=== PATIENT | male | born 1945 | race Two or more races ===

== ENCOUNTER 2016-11-15 19:05 | Observation (INO) | payer OTHER, MEDICARE ==
[2016-11-15] MEDS ORDERED: NORMAL SALINE 1000 ML 1,000 ML IV ONE (19:30)
[2016-11-15] MEDS ORDERED: ONDANSETRON HCL INJ/PF 4 MG/2 ML SDV IV ONE (19:47)
--- NOTE | 2016-11-15 20:00 | ER Document Report ---
ED Medical Screen (RME) - General TRAVEL OUTSIDE OF THE [place] IN LAST 30 DAYS: No <JUDITH MANDUJANO - Last Filed: 11/15/16 19:50> <AYALA VILLATORO - Last Filed: 11/15/16 20:25> - General Chief Complaint: Vomiting Stated Complaint: VOMITING,SENT FROM URGENT CARE Time Seen by Provider: 11/15/16 19:35 Notes: Patient is a 71 year old male presenting to the emergency department for abdominal pain, belching, dry heaving, and lack of appetite. Patient has also had rhinorrhea. Patient states he was seen at Urgent Care and was instructed to come to the ED because of hypotension and concern for dehydration. Patient also states he has been short of breath from the heat. Patient has a history of prostate cancer, stents x3, diabetes mellitus, and CAD. (JUDITH MANDUJANO) - Related Data Allergies/Adverse Reactions: No Known Allergies Allergy (Unverified 11/15/16 19:35) Past Medical History - Social History Chew tobacco use (# tins/day): No Frequency of alcohol use: None Drug Abuse: None - Past Medical History Cardiac Medical History: Reports: Hx Hypercholesterolemia, Hx Hypertension Endocrine Medical History: Reports: Hx Diabetes Mellitus Type 2 Renal/ Medical History: Denies: Hx Peritoneal Dialysis Musculoskeltal Medical History: Reports Hx Arthritis Past Surgical History: Reports: Hx Abdominal Surgery - hernia, Hx Cardiac Surgery - stents, Hx Tonsillectomy - Immunizations Hx Diphtheria, Pertussis, Tetanus Vaccination: No History of Influenza Vaccine for 11/2016 - 04/2017 Season: Yes Influenza Administration Date for 11/2016 - 04/2017 Season: 11/09/15 <JUDITH MANDUJANO - Last Filed: 11/15/16 19:50> Physical Exam <JUDITH MANDUJANO - Last Filed: 11/15/16 19:50> - Vital signs Interpretation: Tachycardic <AYALA VILLATORO - Last Filed: 11/15/16 20:25> - Vital signs Vitals: Temp Pulse Resp BP Pulse Ox 98.1 F 122 H 22 H 104/55 L 99 11/15/16 19:14 11/15/16 19:14 11/15/16 19:14 11/15/16 19:14 11/15/16 19:14 - Notes Notes: GENERAL: Alert, interacts well. No acute distress. LUNGS: No respiratory distress. ABDOMEN: Soft, non-tender. Non-distended. Bowel sounds present in all 4 quadrants. (JUDITH MANDUJANO) Course - Laboratory Result Diagrams: 11/15/16 20:05 11/15/16 20:05 <AYALA VILLATORO - Last Filed: 11/15/16 20:25> - Vital Signs Vital signs: Temp Pulse Resp BP Pulse Ox 98.1 F 122 H 22 H 104/55 L 99 11/15/16 19:14 11/15/16 19:14 11/15/16 19:14 11/15/16 19:14 11/15/16 19:14 - Laboratory Laboratory results interpreted by me: 11/15/16 20:05 POC Glucose 132 H Scribe Documentation - Scribe Written by Scribe:: Nura Charlton 11/15/16 20:08 acting as scribe for :: Phillip <JUDITH MANDUJANO - Last Filed: 11/15/16 19:50>
[2016-11-15 20:20] LABS: ABSOLUTE BASOPHILS # (AUTO) 0.2 10^3/uL (0.0-0.2); ABSOLUTE EOSINOPHILS # (AUTO) 0.1 10^3/uL (0.0-0.6); ABSOLUTE LYMPHOCYTES (AUTO) 2.6 10^3/uL (0.5-4.7); ABSOLUTE NEUT (AUTO) 9.4 10^3/uL (1.7-8.2); BASOPHILS % (AUTO) 1.2 % (0-2); EOSINOPHILS % (AUTO) 0.6 % (0-6); HEMATOCRIT 44.8 % (37.9-51.0); HEMOGLOBIN 15.3 g/dL (13.5-17.0); HGB HCT DIFFERENCE 1.1; LYMPHOCYTES % (AUTO) 19.5 % (13-45); MEAN CORPUSCULAR HGB CONC 34.2 g/dL (32.0-36.0); MEAN CORPUSCULAR VOLUME 82 fl (80-97); MONOCYTES % (AUTO) 7.8 % (3-13); RED BLOOD COUNT 5.48 10^6/uL (4.35-5.55); RED CELL DISTRIBUTION WIDTH 15.6 % (11.5-14.0); SEGMENTED NEUTROPHILS % (AUTO) 70.9 % (42-78); VENOUS BLOOD HCO3 23.9 mmol/L (20-32); VENOUS BLOOD PCO2 40.5 mmHg (35-63); VENOUS BLOOD PH 7.39 (7.30-7.42); WHITE BLOOD COUNT 13.2 10^3/uL (4.0-10.5)
[2016-11-15 20:27] LABS: PROTHROMBIN TIME 13.4 SEC (11.4-15.4)
[2016-11-15 20:34] LABS: APPEARANCE,URINE SLIGHTLY-CLOUDY; BILIRUBIN,URINE NEGATIVE (NEGATIVE); GLUCOSE, URINE NEGATIVE (NEGATIVE); KETONES,URINE NEGATIVE (NEGATIVE); LEUKOCYTE ESTERASE,URINE LARGE (NEGATIVE); NITRITE,URINE NEGATIVE (NEGATIVE); PROTEIN,URINE NEGATIVE (NEGATIVE)
--- NOTE | 2016-11-15 20:51 | ER Document Report ---
ED GI/ - General Chief Complaint: Vomiting Stated Complaint: VOMITING,SENT FROM URGENT CARE Time Seen by Provider: 11/15/16 19:35 Notes: Patient is a 71-year-old male who comes emergency department for chief complaint of vomiting, generalized abdominal pain, belching, and some sinus congestion. He states he has no appetite and is barely drinking. He states he has been sick for 5 days. He denies fever. He denies dysuria, flank pain, chest pain, difficulty breathing, cough. He just vomited before I entered the room. Past medical history of type 2 diabetes, CAD with stents, prostate cancer with previous radiation but no current treatments, and inguinal hernia repair. He lives at home with his daughter. TRAVEL OUTSIDE OF THE [place] IN LAST 30 DAYS: No - Related Data Allergies/Adverse Reactions: No Known Allergies Allergy (Unverified 11/15/16 19:35) Home Medications: Current Home Medications Aspirin [Aspirin 325 mg Tablet] 325 mg PO ASDIR 11/16/16 [History] Atenolol [Tenormin] 25 mg PO DAILY 11/16/16 [History] Lisinopril/Hydrochlorothiazide [Lisinopril-Hctz 20-12.5 mg Tab] 2 tab PO DAILY 11/16/16 [History] Meloxicam 15 mg PO DAILY 11/16/16 [History] Metformin HCl 500 mg PO DAILY 11/16/16 [History] Trazodone HCl 50 mg PO QHS PRN 11/16/16 [History] Venlafaxine HCl 75 mg PO DAILY 11/16/16 [History] Past Medical History - General Information source: Patient - Social History Smoking Status: Never Smoker Chew tobacco use (# tins/day): No Frequency of alcohol use: None Drug Abuse: None Lives with: Family Family History: Reviewed & Not Pertinent Patient has suicidal ideation: No Patient has homicidal ideation: No - Past Medical History Cardiac Medical History: Reports: Hx Hypercholesterolemia, Hx Hypertension Endocrine Medical History: Reports: Hx Diabetes Mellitus Type 2 Renal/ Medical History: Denies: Hx Peritoneal Dialysis Musculoskeltal Medical History: Reports Hx Arthritis Past Surgical History: Reports: Hx Abdominal Surgery - hernia, Hx Cardiac Surgery - stents, Hx Tonsillectomy - Immunizations Hx Diphtheria, Pertussis, Tetanus Vaccination: No Review of Systems - Review of Systems Constitutional: See HPI EENT: No symptoms reported Cardiovascular: No symptoms reported Respiratory: No symptoms reported Gastrointestinal: See HPI Genitourinary: No symptoms reported Male Genitourinary: No symptoms reported Musculoskeletal: No symptoms reported Skin: No symptoms reported Hematologic/Lymphatic: No symptoms reported Neurological/Psychological: No symptoms reported Physical Exam - Vital signs Vitals: Temp Pulse Resp BP Pulse Ox 98.1 F 122 H 22 H 104/55 L 99 11/15/16 19:14 11/15/16 19:14 11/15/16 19:14 11/15/16 19:14 11/15/16 19:14 Interpretation: Normal - General General appearance: Appears well, Alert In distress: None - HEENT Head: Normocephalic, Atraumatic Eyes: Normal Pupils: PERRL - Respiratory Respiratory status: No respiratory distress Chest status: Nontender Breath sounds: Normal Chest palpation: Normal - Cardiovascular Rhythm: Regular. No: Tachycardia Heart sounds: Normal auscultation, S1 appreciated, S2 appreciated Murmur: No - Abdominal Inspection: Normal Distension: No distension Bowel sounds: Normal Tenderness: Tender - There is generalized tenderness, mainly in the upper abdomen, there is no guarding or rigidity Organomegaly: No organomegaly - Back Back: Normal, Nontender. No: Tender, CVA tenderness - Extremities General upper extremity: Normal inspection, Nontender, Normal color, Normal ROM , Normal temperature General lower extremity: Normal inspection, Nontender, Normal color, Normal ROM , Normal temperature, Normal weight bearing. No: Luisa's sign - Neurological Neuro grossly intact: Yes Cognition: Normal Orientation: AAOx4 Bernard Coma Scale Eye Opening: Spontaneous Flor Coma Scale Verbal: Oriented Bernard Coma Scale Motor: Obeys Commands Flor Coma Scale Total: 15 Speech: Normal Motor strength normal: LUE, RUE, LLE, RLE Sensory: Normal - Psychological Associated symptoms: Normal affect, Normal mood - Skin Skin Temperature: Warm Skin Moisture: Dry Skin Color: Normal Course - Re-evaluation Re-evalutation: Patient is nontoxic in appearance, has generalized abdominal pain, however he is holding an emesis bag and appears to have just vomited before I entered the room. No CVA tenderness. No tachycardia, no hypotension, these have resolved since being given IV fluids from triage orders. Concern because of patient stating he has had vomiting for 5 days. CBC shows mild leukocytosis with no shift. He is not febrile. Lactic acid is elevated but he is also dry and I feel this is nonspecific with his normal vital signs. Chemistry shows elevated creatinine 1.8 with no comparison studies. Urinalysis indicates infection with large leukocyte esterase and white blood cells. On reevaluation patient has completed contrast and completed his scan but he states he vomited again. Patient will be given oral medication including Phenergan for nausea. CAT scan showing no acute abnormality, no evidence of obstruction or concerning pathology. Family has arrived at bedside and they report to me that he has vomited again and then had a couple of episodes of dry heaving. Patient still looks great, he does not appear toxic in any way, however I am concerned about the duration of his vomiting, his age, his urinary tract infection, and his seemingly intractable vomiting. Family is not comfortable with patient going home, patient states he is agreeable either way. Discussed with Dr. Sen. Discussed with Dr. Rodriguez, internal medicine, patient will be admitted to telemetry observation. - Vital Signs Vital signs: Temp Pulse Resp BP Pulse Ox 98.2 F 96 18 108/72 100 11/16/16 03:24 11/16/16 03:53 11/16/16 03:24 11/16/16 03:24 11/16/16 03:24 - Laboratory Result Diagrams: 11/15/16 20:05 11/15/16 20:35 Laboratory results interpreted by me: 11/15/16 11/15/16 11/15/16 20:05 20:05 20:05 WBC 13.2 H RDW 15.6 H Absolute Neutrophils 9.4 H Potassium BUN Creatinine Est GFR ( Amer) Est GFR (Non-Af Amer) Glucose POC Glucose Lactic Acid 3.3 H Calcium Urine Urobilinogen 2.0 H Ur Leukocyte Esterase LARGE H 11/15/16 11/15/16 20:05 20:35 WBC RDW Absolute Neutrophils Potassium 5.1 H BUN 52 H Creatinine 1.87 H Est GFR ( Amer) 43 L Est GFR (Non-Af Amer) 36 L Glucose 129 H POC Glucose 132 H Lactic Acid Calcium 10.5 H Urine Urobilinogen Ur Leukocyte Esterase Discharge - Discharge Clinical Impression: Vomiting Qualifiers: Vomiting type: unspecified Vomiting Intractability: intractable Nausea presence : with nausea Qualified Code(s): R11.2 - Nausea with vomiting, unspecified Abdominal pain Qualifiers: Abdominal location: generalized Qualified Code(s): R10.84 - Generalized abdominal pain Urinary tract infection Qualifiers: Urinary tract infection type: site unspecified Qualified Code(s): N39.0 - Urinary tract infection, site not specified Condition: Stable Disposition: ADMITTED OBSERVATION Admitting Provider: Hospitalist Unit Admitted: Telemetry
[2016-11-15 20:59] LABS: ALANINE AMINOTRANSFERASE 39 U/L (21-72); ALKALINE PHOSPHATASE 117 U/L (38-126); ANION GAP 14 (5-19); ASPARTATE AMINO TRANSFERASE 25 U/L (17-59); BILIRUBIN,DIRECT 0.4 mg/dL (0.0-0.4); BILIRUBIN,TOTAL 0.8 mg/dL (0.2-1.3); BLOOD UREA NITROGEN 52 mg/dL (7-20); CALCIUM 10.5 mg/dL (8.4-10.2); CARBON DIOXIDE 23 mmol/L (22-30); CHLORIDE 102 mmol/L (98-107); CREATININE RESULT 1.87 mg/dL (0.52-1.25); GLUCOSE 129 mg/dL (75-110); POTASSIUM 5.1 mmol/L (3.6-5.0); SODIUM 138.5 mmol/L (137-145); TOTAL PROTEIN 6.7 g/dL (6.3-8.2)
--- NOTE | 2016-11-15 23:01 | RADIOLOGY REPORT (SQ) ---
EXAM DESCRIPTION: CT ABD/PELVIS ORAL ONLY COMPLETED DATE/TIME: 11/15/2016 10:41 pm REASON FOR STUDY: n/v, abd pain, hypotensive, tachycardic COMPARISON: None. TECHNIQUE: CT scan of the abdomen and pelvis performed with oral contrast and no intravenous contras t. Images reviewed with lung, soft tissue, and bone windows. Reconstructed coronal and sagittal MPR i mages reviewed. All images stored on PACS. All CT scanners at this facility use dose modulation, iterative reconstruction, and/or weight based d osing when appropriate to reduce radiation dose to as low as reasonably achievable (ALARA). [facility]: Dose Right [facility]: CareDose [facility]: Dose Right [facility]: Teradose 4D [facility]: [employer] RADIATION DOSE: Up-to-date CT equipment and radiation dose reduction techniques were employed. CTDIv ol: 17.9 mGy. DLP: 1064 mGy-cm.mGy. LIMITATIONS: None. FINDINGS: LOWER CHEST: Clear lung bases. Normal heart size. Trace pericardial thickening. Small h iatal hernia. NON-CONTRASTED LIVER, SPLEEN, ADRENALS: Evaluation limited by lack of IV contrast. No identified sign ificant masses. PANCREAS: No masses. No peripancreatic inflammatory changes. GALLBLADDER: No identified stones by CT criteria. No inflammatory changes to suggest cholecystitis. RIGHT KIDNEY AND URETER: No solid masses. No significant calcification. No hydronephrosis or hydroure ter. LEFT KIDNEY AND URETER: No solid masses. No significant calcification. No hydronephrosis or hydrouret er. AORTA AND RETROPERITONEUM: No aneurysm. No retroperitoneal masses or adenopathy. BOWEL AND PERITONEAL CAVITY: No obvious masses or inflammatory changes. No free fluid. APPENDIX: Normal. PELVIS, BLADDER, AND ABDOMINAL WALL: No abnormal pelvic masses. No abdominal wall hernias. Bladder un remarkable. BONES: No significant findings. OTHER: No other significant finding. IMPRESSION: NO SIGNIFICANT OR ACUTE ABDOMINAL PROCESS. TECHNICAL DOCUMENTATION: JOB ID: [id number] Quality ID # [id number]: Final reports with documentation of one or more dose reduction techniques (e.g., Au tomated exposure control, adjustment of the mA and/or kV according to patient size, use of iterative reconstruction technique) 2010 [employer]- All Rights Reserved
[2016-11-15] MEDS ORDERED: FAMOTIDINE 20 MG TABLET PO ONE (23:22)
[2016-11-15] MEDS ORDERED: CEFTRIAXONE 1 GM/D5W RTU 1 GM/50 ML RTUPB IV ONE (23:22)
[2016-11-15] MEDS ORDERED: MAG HYDROX/AL HYDROX/SIMETH SUSP 30 ML UDCUP PO ONE (23:22)
[2016-11-15] MEDS ORDERED: PROMETHAZINE HCL 25 MG TABLET PO ONE (23:22)
[2016-11-16] MEDS ORDERED: INSULIN LISPRO 100 UNIT/ML 3 ML VIAL SUBCUT PRN (02:59)
[2016-11-16] MEDS ORDERED: DEXTROSE 50%-WATER 25 GM/50 ML DISP.SYRIN IV PRN ×2 (02:59)
[2016-11-16] MEDS ORDERED: DEXTROSE 40% GEL 15 GM TUBE PO PRN ×2 (02:59)
[2016-11-16] MEDS ORDERED: GLUCAGON,HUMAN RECOMB 1 MG INJ IM PRN (02:59)
[2016-11-16] MEDS ORDERED: PHARMACY COMMUNICATION ORDER MC SCH (03:00)
[2016-11-16] MEDS ORDERED: ACETAMINOPHEN 325 MG TABLET PO PRN ×2 (03:00→08:30)
[2016-11-16] MEDS ORDERED: PROMETHAZINE HCL 25 MG TABLET PO PRN (03:00)
[2016-11-16] MEDS ORDERED: NORMAL SALINE 1000 ML 1,000 ML IV PRN (03:01)
--- NOTE | 2016-11-16 03:27 | PDOC H&P ---
History of Present Illness Admission Date/PCP: 11/16/16 01:39 [facility] Patient complains of: Nausea and vomiting, abdominal pain History of Present Illness: MARIA ELENA CORDOVA JR is a 71 year old male with underlying type 2 diabetes mellitus, obstructive sleep apnea, never having picked up his CPAP machine, chronic mild depression, without suicidal or homicidal ideation, arthritis, and status post radiation treatment of prostate cancer which has left him with approximately 3 urinary tract infections per year, who presents to the emergency room for evaluation of above complaints. Patient has been discussed with emergency room PA who evaluated the patient. Describes a 5 day history of intermittent somewhat cramping abdominal pain, frequent belching, mild sinus congestion, but primarily multiple episodes of nonbloody non-coffee ground emesis. Little appetite and little p.o. fluid intake. There is been no fever, dysuria, flank or chest pain, cough or difficulty breathing. No history of peptic ulcer disease, pancreatitis, Crohn's disease, ulcerative colitis, or inflammatory bowel disease. No prior such episodes. No unusual oral intake. No friends or family with similar complaints. No diarrhea. Somewhat softer than usual but otherwise normal bowel movement approximately 24 hours ago. Has been given a gram of Rocephin and a liter of IV fluid. Has been tried more than once on clear liquids, but shortly after drinking these, he becomes nauseated and vomits again. States the emesis episode usually start with belching. Last had something to drink in the form of clear liquids approximately 30 minutes prior to my seeing him. He is comfortable at the present time. Denies any chronic underlying renal disease. Dictation via voice recognition software. Laboratory results are listed in [employer] and are reviewed. X-ray summary results are listed below, with full report(s) reviewed. EKG reviewed. No old EKG available for comparison. Social history/personal habits: . One daughter. Retired. No use of alcohol tobacco or illicit drugs. No known drug allergies. Home medications initially autopopulated into [employer] may not accurately reflect patient's true medications, dosages, and/or frequencies. 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 Unfortunately, patient not certain of all medications/dosages/frequencies. REVIEW OF SYSTEMS: Constitutional: No fever or chills. Eyes: Wears glasses. ENT: No swallowing problems or complaints. Partial hearing loss. Pulmonary: No current complaints. Cardiovascular: No current complaints, including chest pain. Gastrointestinal: See history and present illness. Skin: No current complaints, including rashes. Hematologic: Denies easy bruising. Neurologic: Mild diabetic peripheral neuropathy, in the form of decreased sensation in his feet. Musculoskeletal: Joint pain from arthritis. Psychiatric: Mild depression. Endocrine: No current complaints, including polyuria. Genitourinary: No current complaints, including dysuria. PHYSICAL EXAMINATION: 6 feet 1 inches tall. 118 kg. BMI 34.3 kg/m. Blood pressure 104/46. Pulse 107 and regular. 94% saturation on room air. Respirations are 20 and unlabored. Temperature 98.1. Somewhat obese otherwise well-nourished well-developed bearded male who appears perhaps a bit younger than his stated age. Pleasant awake alert and cooperative. Rather talkative gentleman. Mildly anxious, without agitation. Skin is warm and dry. No grossly obvious evidence of rash in areas of skin examined. No subcutaneous nodules palpated. ENT: Hearing grossly normal to normal conversation. Tongue midline on protrusion pink and moist. Eyes: No scleral icterus. Pupils equal and reactive to light at 4 mm. [place] conjunctivae. Neck is supple and nontender to gentle active range of motion and palpation. Midline trachea. No palpable thyroid nodule mass enlargement or tenderness. Lymphatic: No palpable cervical or clavicular nodes. Neck and lymphatic exams limited by patient body habitus. Psychiatric: Reasonable insight into acute and chronic medical issues. Oriented to time location and why here. Lungs: Auscultation reveals clear and equal breath sounds bilaterally. No use of accessory respiratory muscles. Cardiovascular: Heart regular rate and rhythm, without gallop murmur or rub. No carotid or abdominal aortic bruits. No ankle or pedal edema. Faintly palpable dorsalis pedis pulses. Abdomen:soft somewhat obese nontender with positive bowel sounds. Unable to adequately evaluate abdomen for masses or organomegaly due to body habitus. Extremities: Feet are warm and dry. No calf tenderness to compression. No grossly obvious visual evidence of calf swelling. Gentle manipulation of lower extremities fails to reveal any obvious evidence of injury or instability to knees hips or ankles. Approximately 1 x 1.5 cm ulcer on the tip of his right great toe small amount of surrounding thickened skin. No inflammation crepitus fluctuance or expressible discharge or tenderness. Much smaller ulcer, but similar findings, minus the thickened skin, on the tip of his left second toe. Neurologic: Moves upper extremities grossly normally. Patellar reflexes absent. Absent Babinski. Light touch slightly decreased at feet, a chronic finding, without recent change, per patient. Dorsiflexion and plantarflexion of feet 5 / 5 and symmetric. Past Medical History Cardiac Medical History: Reports: Coronary Artery Disease - Stent 3; the last 2002, Hyperlipidema, Hypertension Denies: Atrial Fibrillation, Congestive Heart Failure, DVT, Myocardial Infarction, Pulmonary Embolism Pulmonary Medical History: Reports: Sleep Apnea - Never picked up his CPAP machine. Denies: Asthma, Chronic Obstructive Pulmonary Disease (COPD) EENT Medical History: Reports: Eyes - Wears glasses, Ears - Partial hearing loss Neurological Medical History: Reports: Other - Diabetic peripheral neuropathy in his feet Denies: Hemorrhagic CVA, Ischemic CVA, Seizures Endocrine Medical History: Reports: Diabetes Mellitus Type 2 Denies: Diabetes Mellitus Type 1, Hyperthyroidism, Hypothyroidism Renal/ Medical History: Reports: Other - Frequent urinary tract infections, approximately 3 per year. Malignancy Medical History: Reports: Other - Prostate cancer, status post radiation treatment of same GI Medical History: Denies: Cirrhosis, Gastroesophageal Reflux Disease, Hepatitis, Peptic Ulcer Disease Musculoskeltal Medical History: Reports: Arthritis Skin Medical History: Reports: None Psychiatric Medical History: Reports: Depression Denies: Alcohol Dependency, General Anxiety Disorder, Substance Abuse, Tobacco Dependency Infectious Medical History: Denies: Hepatitis B, Hepatitis C Past Surgical History Past Surgical History: Reports: Coronary Stent - 3, last 2002, Herniorrhaphy, Tonsillectomy Social History Information Source: Patient, Emergency Med Personnel Smoking Status: Unknown if Ever Smoked Frequency of Alcohol Use: None Drugs: None - Advance Directive Resuscitation Status: Full Code Surrogate healthcare decision maker:: Debra Cordova Family History Parental Family History Reviewed: Yes - Mother of renal failure; father after myocardial infarction Children Family History Reviewed: Yes - Uncertain health status of daughter Sibling(s) Family History Reviewed.: Yes - Medication/Allergy Home Medications: RX: Aspirin [Aspirin 325 mg Tablet] 325 mg PO DAILY 11/16/16 RX: Atenolol [Tenormin] 25 mg PO DAILY 11/16/16 RX: Metformin HCl [Glucophage 500 mg Tablet] 500 mg PO QAM 11/16/16 RX: Trazodone HCl [Desyrel 50 mg Tablet] 50 mg PO HSP PRN 11/16/16 RX: Venlafaxine HCl [Effexor 75 mg Tablet] 75 mg PO DAILY 11/16/16 Cefdinir [Omnicef 300 mg Capsule] 1 cap PO BID #28 capsule 11/18/16 Allergies/Adverse Reactions: No Known Allergies Allergy (Unverified 11/15/16 19:35) Physical Exam Vital Signs: Temp Pulse Resp BP Pulse Ox 98.1 F 122 H 19 110/68 97 11/15/16 19:14 11/15/16 19:14 11/16/16 02:31 11/16/16 02:31 11/16/16 02:31 Results Impressions: Abdomen/Pelvis CT 11/15/16 00:00 IMPRESSION: NO SIGNIFICANT OR ACUTE ABDOMINAL PROCESS. Assessment & Plan - Diagnosis (1) Hyperkalemia Is this a current diagnosis for this admission?: Yes Plan: Very mild. Follow-up chemistry. (2) HORTENCIA (obstructive sleep apnea) Is this a current diagnosis for this admission?: Yes Plan: CPAP nightly (3) Stented coronary artery Is this a current diagnosis for this admission?: Yes Plan: Resume home medications as appropriate once these have been determined and reviewed. (4) Ulcer of left second toe Qualifiers: Non-pressure ulcer stage: unspecified non-pressure ulcer stage Qualified Code(s): L97.529 - Non-pressure chronic ulcer of other part of left foot with unspecified severity Is this a current diagnosis for this admission?: Yes Plan: Surgery consult. (5) Chronic ulcer of right great toe Qualifiers: Non-pressure ulcer stage: unspecified non-pressure ulcer stage Qualified Code(s): L97.519 - Non-pressure chronic ulcer of other part of right foot with unspecified severity Is this a current diagnosis for this admission?: Yes Plan: Surgery consult. (6) Renal insufficiency Is this a current diagnosis for this admission?: Yes Plan: No prior labs available for comparison. Patient denies any chronic urinary tract issues, other than approximately 3 urinary tract infections per year. Also status post radiation treatment of prostate cancer. Adjust home medications as needed. IV fluids. Follow-up chemistry. (7) Diabetes mellitus type 2 in obese Is this a current diagnosis for this admission?: Yes Plan: Diabetic cardiac prerenal diet. Accu-Cheks with appropriate sliding scale coverage. Resume home medications as appropriate once these have been determined and reviewed. (8) Depression Qualifiers: Depression Type: unspecified Qualified Code(s): F32.9 - Major depressive disorder, single episode, unspecified Is this a current diagnosis for this admission?: Yes Plan: Resume home medications as appropriate once these have been determined and reviewed. (9) HLD (hyperlipidemia) Qualifiers: Hyperlipidemia type: unspecified Qualified Code(s): E78.5 - Hyperlipidemia , unspecified Is this a current diagnosis for this admission?: Yes Plan: Resume home medications as appropriate once these have been determined and reviewed. (10) Vomiting Qualifiers: Vomiting type: unspecified Vomiting Intractability: intractable Nausea presence: with nausea Qualified Code(s): R11.2 - Nausea with vomiting, unspecified Is this a current diagnosis for this admission?: Yes Plan: Clear liquid prerenal diet. As needed Phenergan. (11) Abdominal pain Qualifiers: Abdominal location: generalized Qualified Code(s): R10.84 - Generalized abdominal pain Is this a current diagnosis for this admission?: Yes Plan: Resolved at present both subjectively and on exam. Follow clinically. Advance diet slowly. (12) Urinary tract infection Qualifiers: Urinary tract infection type: site unspecified Is this a current diagnosis for this admission?: Yes Plan: Blood and urine cultures have been drawn. Rocephin. I have strongly encouraged patient not to get out of bed without notifying staff , to avoid a fall with injury. Knee high SCDs for DVT prophylaxis, along with subcutaneous heparin. Impression and plans were discussed with patient, who concurs. Time spent in evaluation and management of patient: 74 minutes. - Time Time Spent: Greater than 70 Minutes Medications reviewed and adjusted accordingly: No - Patient not certain of all medications. Anticipated discharge: Home Within: within 48 hours
[2016-11-16] MEDS ORDERED: INFLUENZA ADLT QUAD (36MOS+) 2017-18 VAC 0.5 ML SYR IM PRN (04:05)
--- NOTE | 2016-11-16 06:00 | PDOC CONSULTATION ---
Consultation Consult Date: 11/16/16 Consult reason:: Dry ulcers on the right big toe tip and the left second toe tip History of Present Illness Admission Date/PCP: 11/16/16 03:01 Patient complains of: Patient noted dry ulcers along the right big toe tip in the left second toe tip History of Present Illness: This is a 71-year-old male who wore tight fitting shoe about a month ago. Patient has neuropathy due to diabetes of both feet. He noted blister on the right first toe tip and on the left second toe tip. The immediately dispose of his tight shoe and wore more feeding shoes. On admission last night he was noted to have dry ulcer along the right first big toe and the left second toe. Patient denies any pains or discomfort with this toes. He is a known diabetic on Metformin since 2002 Past Medical History Cardiac Medical History: Reports: Coronary Artery Disease - Stent 3; the last 2002, Hyperlipidema, Hypertension Denies: Atrial Fibrillation, Congestive Heart Failure, DVT, Myocardial Infarction, Pulmonary Embolism Pulmonary Medical History: Reports: Sleep Apnea - Never picked up his CPAP machine. Denies: Asthma, Chronic Obstructive Pulmonary Disease (COPD) EENT Medical History: Reports: Eyes - Wears glasses, Ears - Partial hearing loss Neurological Medical History: Reports: Other - Diabetic peripheral neuropathy in his feet Denies: Hemorrhagic CVA, Ischemic CVA, Seizures Endocrine Medical History: Reports: Diabetes Mellitus Type 2 Denies: Diabetes Mellitus Type 1, Hyperthyroidism, Hypothyroidism Renal/ Medical History: Reports: Other - Frequent urinary tract infections, approximately 3 per year. Malignancy Medical History: Reports: Other - Prostate cancer, status post radiation treatment of same GI Medical History: Denies: Cirrhosis, Gastroesophageal Reflux Disease, Hepatitis, Peptic Ulcer Disease Musculoskeltal Medical History: Reports: Arthritis Skin Medical History: Reports: None Psychiatric Medical History: Reports: Depression Denies: Alcohol Dependency, General Anxiety Disorder, Substance Abuse, Tobacco Dependency Infectious Medical History: Denies: Hepatitis B, Hepatitis C Past Surgical History Past Surgical History: Reports: Coronary Stent - 3, last 2002, Herniorrhaphy, Tonsillectomy Social History Lives with: Other - With daughter Smoking Status: Never Smoker Frequency of Alcohol Use: None Hx Recreational Drug Use: No Drugs: None Hx Prescription Drug Abuse: No - Advance Directive Resuscitation Status: Full Code Family History Parental Family History Reviewed: Yes - Mother of [place] in father of kidney failure Children Family History Reviewed: No Sibling(s) Family History Reviewed.: Yes - Brother from [place] Medication/Allergy Home Medications: Aspirin [Aspirin 325 mg Tablet] 325 mg PO ASDIR 11/16/16 Atenolol [Tenormin] 25 mg PO DAILY 11/16/16 Lisinopril/Hydrochlorothiazide [Lisinopril-Hctz 20-12.5 mg Tab] 2 tab PO DAILY 11/16/16 Meloxicam 15 mg PO DAILY 11/16/16 Metformin HCl 500 mg PO DAILY 11/16/16 Trazodone HCl 50 mg PO QHS PRN 11/16/16 Venlafaxine HCl 75 mg PO DAILY 11/16/16 Allergies/Adverse Reactions: No Known Allergies Allergy (Unverified 11/15/16 19:35) Review of Systems Constitutional: PRESENT: as per HPI Eyes: PRESENT: other - No visual disturbances Ears: PRESENT: other - No hearing changes Nose, Mouth, and Throat: PRESENT: other - No vertigo Cardiovascular: PRESENT: other - No chest pain Respiratory: PRESENT: cough Gastrointestinal: PRESENT: as per HPI - Patient admitted for nausea and vomiting. This morning however patient feels better. Genitourinary: PRESENT: other - Patient complain of some redness on the foreskin. However when examined this morning I do not see anymore redness along the foreskin Integumentary: PRESENT: other - Ulcers on the right big toe on the left second Neurological: PRESENT: other - No dizziness Psychiatric: PRESENT: other - Denies anxiety Endocrine: PRESENT: other - No polyuria no polydipsia Physical Exam Vital Signs: Temp Pulse Resp BP Pulse Ox 98.2 F 96 18 108/72 100 11/16/16 03:24 11/16/16 03:53 11/16/16 03:24 11/16/16 03:24 11/16/16 03:24 General appearance: PRESENT: no acute distress Head exam: PRESENT: atraumatic, normocephalic Eye exam: PRESENT: conjunctiva pink Ear exam: PRESENT: normal external ear exam Mouth exam: PRESENT: moist, tongue midline Neck exam: PRESENT: other - Trachea midline Respiratory exam: PRESENT: clear to auscultation verenice Cardiovascular exam: PRESENT: RRR Pulses: PRESENT: +2 pedal pulses bilateral Vascular exam: PRESENT: normal capillary refill GI/Abdominal exam: PRESENT: soft, other - Nontender Rectal exam: PRESENT: deferred Gentrourinary exam: PRESENT: other - Penile foreskin no redness noted Extremities exam: PRESENT: other - There is a dry ulcer about 1-1/2 cm in diameter along the tip of the right big toe which is also nontender. There is some mild callus formation surrounding the ulcer the ulcer is actually covered by a thin epidermis. There is no redness and no discharge on squeezing the ulcer site There is a smaller more superficial ulcer along the tip of the left second toe about 5 mm in diameter. This is also nontender and no discharge on squeezing it. The toe itself is somewhat bigger than the rest of the toes but the patient claims that he has a history of arthritis and this may be part of his arthritis. There is no redness. Neurological exam: PRESENT: alert, oriented to person, oriented to place, oriented to time, oriented to situation, CN II-XII grossly intact Psychiatric exam: PRESENT: normal mood Skin exam: PRESENT: dry, normal color, warm Results Impressions: Abdomen/Pelvis CT 11/15/16 00:00 IMPRESSION: NO SIGNIFICANT OR ACUTE ABDOMINAL PROCESS. Assessment & Plan - Time Time Spent: 30 to 50 Minutes - Plan Summary Plan Summary: #1 patient advised to wear looser fitting shoes 2. Patient advised to check both feet including the soles with a mirror because of his diabetic neuropathy and therefore unable to feel any wound or lesions in both feet 3. Nothing to recommend for these ulcers.They should eventually heal. Just told the patient to observe them and if there is any redness or drainage then to go to the emergency room or to check with a family physician or a copy chief. He and his daughter actually live in [facility] and they are still trying to relocate here in [place] and therefore does not have any primary physician yet
--- NOTE | 2016-11-16 06:23 | EKG REPORT ---
SEVERITY:- ABNORMAL ECG - ACCELERATED JUNCTIONAL RHYTHM LEFT ANTERIOR FASCICULAR BLOCK RIGHT VENTRICULAR HYPERTROPHY : Confirmed by: Ana Hannon MD 16-Nov-2016 06:22:44
[2016-11-16 07:09] LABS: ANION GAP 10 (5-19); BLOOD UREA NITROGEN 51 mg/dL (7-20); CALCIUM 9.5 mg/dL (8.4-10.2); CARBON DIOXIDE 23 mmol/L (22-30); CHLORIDE 105 mmol/L (98-107); CREATININE RESULT 1.67 mg/dL (0.52-1.25); GLUCOSE 120 mg/dL (75-110); MAGNESIUM 1.9 mg/dL (1.6-2.3); POTASSIUM 4.5 mmol/L (3.6-5.0); SODIUM 138.2 mmol/L (137-145)
[2016-11-16 07:18] LABS: ABSOLUTE BASOPHILS # (AUTO) 0.1 10^3/uL (0.0-0.2); ABSOLUTE EOSINOPHILS # (AUTO) 0.1 10^3/uL (0.0-0.6); ABSOLUTE LYMPHOCYTES (AUTO) 2.6 10^3/uL (0.5-4.7); ABSOLUTE NEUT (AUTO) 5.2 10^3/uL (1.7-8.2); BASOPHILS % (AUTO) 0.8 % (0-2); HGB HCT DIFFERENCE 1.4; LYMPHOCYTES % (AUTO) 29.4 % (13-45); MEAN CORPUSCULAR HEMOGLOBIN 27.9 pg (27.0-33.4); MEAN CORPUSCULAR HGB CONC 34.5 g/dL (32.0-36.0); MEAN CORPUSCULAR VOLUME 81 fl (80-97); MONOCYTES % (AUTO) 11.3 % (3-13); RED BLOOD COUNT 4.58 10^6/uL (4.35-5.55); RED CELL DISTRIBUTION WIDTH 15.3 % (11.5-14.0); SEGMENTED NEUTROPHILS % (AUTO) 57.5 % (42-78)
[2016-11-16 07:26] LABS: HEMOGLOBIN 12.8 g/dL (13.5-17.0)
[2016-11-16] MEDS ORDERED: TRAZODONE HCL 50 MG TABLET PO PRN ×2 (07:51→09:30)
[2016-11-16] MEDS ORDERED: NORMAL SALINE 1000 ML 1,000 ML IV ONE (08:15)
--- NOTE | 2016-11-16 08:33 | RADIOLOGY REPORT (SQ) ---
EXAM DESCRIPTION: KUB/ABDOMEN (SINGLE VIEW) COMPLETED DATE/TIME: 11/16/2016 8:22 am REASON FOR STUDY: n/v, concern for impaction COMPARISON: CT abdomen pelvis 11/15/2016 NUMBER OF VIEWS: One view. TECHNIQUE: Supine radiographic image of the abdomen acquired. LIMITATIONS: None. FINDINGS: BOWEL GAS PATTERN: Oral contrast for CT scan 11/15/2016 is seen in the colon in a nonobstru ctive pattern. There are still few borderline dilated air-filled small bowel loops in the upper abdo men, nonspecific. CALCIFICATIONS: No suspicious calcifications. SOFT TISSUES: No gross mass or suggestion of organomegaly. HARDWARE: None in the abdomen. BONES: Multilevel degenerative disc changes lumbar spine OTHER: No other significant finding. IMPRESSION: Oral contrast given for CT scan 11/15/2016 is now in the colon. Few nonspecific air-fill ed small bowel loops in the upper abdomen. TECHNICAL DOCUMENTATION: JOB ID: [id number] [employer] All Rights Reserved
[2016-11-16] MEDS: DOCUSATE SODIUM 100 MG CAPSULE PO SCH ×2 (09:27→17:58)
[2016-11-16] MEDS ORDERED: VENLAFAXINE HCL 75 MG TABLET PO SCH (10:00)
[2016-11-16] MEDS ORDERED: ATENOLOL 50 MG TABLET PO SCH (10:00)
[2016-11-16] MEDS ORDERED: HEPARIN SOD (PORCINE) 5,000 UNIT/ML 1 ML SYRINGE SUBCUT SCH (10:00)
[2016-11-16] MEDS ORDERED: CEFTRIAXONE 1 GM/D5W RTU 1 GM/50 ML RTUPB IV SCH (10:00)
[2016-11-16] MEDS ORDERED: (PENDING PHARMACY ID) (Atenolol [Tenormin] 25 MG) PO SCH (10:00)
[2016-11-17] MEDS ORDERED: DEXTROSE 50%-WATER SYRINGE 25 GM/50 ML DOSE IV PRN (07:31)
[2016-11-17] MEDS ORDERED: DEXTROSE 40% GEL 15 GM TUBE PO PRN (07:31)
[2016-11-17] MEDS ORDERED: GLUCAGON,HUMAN RECOMB 1 MG INJ IM PRN (07:31)
[2016-11-17] MEDS ORDERED: DEXTROSE 50%-WATER SYRINGE 12.5 GM/25 ML DOSE IV PRN (07:31)
[2016-11-17] MEDS ORDERED: DEXTROSE 40% GEL 15 GM TUBE X 2 PO PRN (07:31)
[2016-11-17] MEDS ORDERED: INSULIN LISPRO 100 UNIT/ML 3 ML VIAL SUBCUT PRN (07:31)
[2016-11-17] MEDS ORDERED: INFLUENZA ADLT QUAD (36MOS+) 2017-18 VAC 0.5 ML SYR IM PRN (07:33)
[2016-11-17] MEDS ORDERED: NORMAL SALINE 1000 ML 1,000 ML IV PRN (07:34)
[2016-11-17] MEDS ORDERED: ACETAMINOPHEN 325 MG TABLET PO PRN (07:39)
[2016-11-17] MEDS ORDERED: PHARMACY COMMUNICATION ORDER MC PRN (07:40)
[2016-11-17] MEDS ORDERED: TRAZODONE HCL 50 MG TABLET PO PRN (07:42)
[2016-11-17] MEDS ORDERED: PROMETHAZINE HCL 25 MG TABLET PO PRN (07:42)
[2016-11-17] MEDS ORDERED: ASPIRIN 325 MG TABLET PO SCH (10:00)
[2016-11-17] MEDS ORDERED: CEFTRIAXONE 1 GM/D5W RTU 1 GM/50 ML RTUPB IV SCH (10:00)
[2016-11-17] MEDS ORDERED: DOCUSATE SODIUM 100 MG CAPSULE PO SCH (10:00)
[2016-11-17 10:02] LABS: ANION GAP 12 (5-19); BLOOD UREA NITROGEN 30 mg/dL (7-20); CALCIUM 9.2 mg/dL (8.4-10.2); CARBON DIOXIDE 23 mmol/L (22-30); CHLORIDE 105 mmol/L (98-107); CREATININE RESULT 1.06 mg/dL (0.52-1.25); GLUCOSE 128 mg/dL (75-110); SODIUM 140.1 mmol/L (137-145)
[2016-11-17] MEDS: ASPIRIN 325 MG TABLET PO SCH (11:11)
[2016-11-17] MEDS: VENLAFAXINE HCL 75 MG TABLET PO SCH (11:11)
[2016-11-17] MEDS: HEPARIN SOD (PORCINE) 5,000 UNIT/ML 1 ML SYRINGE SUBCUT SCH ×2 (11:11→21:57)
[2016-11-17] MEDS: ATENOLOL 50 MG TABLET PO SCH (11:12)
--- NOTE | 2016-11-17 15:36 | PDOC PROGRESS REPORT ---
Subjective Progress Note for:: 11/17/16 Subjective:: He does report that his stool is slightly loose. Patient reports he is feeling significantly better. No acute events overnight. Patient denies chest pain, shortness of breath, abdominal pain, nausea, vomiting , fevers, chills, constipation, headache, new onset weakness. Physical Exam Vital Signs: Temp Pulse Resp BP Pulse Ox 98.2 F 83 20 117/69 98 11/17/16 07:38 11/17/16 07:38 11/17/16 07:38 11/17/16 07:38 11/17/16 07:38 Intake & Output 11/16/16 11/17/16 11/18/16 06:59 06:59 06:59 Intake Total 175 5078 Output Total 0 2325 Balance 175 2753 Exam: General: Awake alert and oriented x3, no acute respiratory distress HEENT: AT/NC, PERRL, EOMI, oropharynx is moist, pink, no scleral icterus, no conjunctival injection Neck: No JVD, trachea midline Chest: Clear to auscultation bilaterally, no wheezes rhonchi or rales CV: Regular rate and rhythm, normal S1 and S2, no murmur, rub, or gallop Abdomen: Soft, nontender to palpation, nondistended, active bowel sounds; no rebound, rigidity, or guarding Extremities: No cyanosis, clubbing or edema Neuro: Cranial nerves II through XII are grossly intact without focal deficits; awake alert and oriented x3 Psych: Normal mood and affect Results Laboratory Results: 11/16/16 06:19 11/16/16 06:19 Impressions: Abdomen/Pelvis CT 11/15/16 00:00 IMPRESSION: NO SIGNIFICANT OR ACUTE ABDOMINAL PROCESS. KUB X-Ray 11/16/16 00:00 IMPRESSION: Oral contrast given for CT scan 11/15/2016 is now in the colon. Few nonspecific air-filled small bowel loops in the upper abdomen. Assessment & Plan - Diagnosis (1) Urinary tract infection Qualifiers: Urinary tract infection type: site unspecified Qualified Code(s): N39.0 - Urinary tract infection, site not specified Is this a current diagnosis for this admission?: Yes Plan: Transition patient from Rocephin to Levaquin. Patient's culture revealed urogenital corinna. Feel that patient however was actively infected. (2) Hyperkalemia Is this a current diagnosis for this admission?: Yes Plan: Improved with hydration (3) Renal insufficiency Is this a current diagnosis for this admission?: Yes Plan: Improved with hydration.Feel that much of this is secondary to his use of lisinopril with hydrochlorothiazide. (4) Chronic ulcer of right great toe Qualifiers: Non-pressure ulcer stage: unspecified non-pressure ulcer stage Qualified Code(s): L97.519 - Non-pressure chronic ulcer of other part of right foot with unspecified severity Is this a current diagnosis for this admission?: Yes Plan: Appreciate surgery input. Patient will follow with the wound care clinic for this. (5) Depression Qualifiers: Depression Type: unspecified Qualified Code(s): F32.9 - Major depressive disorder, single episode, unspecified Is this a current diagnosis for this admission?: Yes Plan: Continue venlafaxine and trazodone (6) Diabetes mellitus type 2 in obese Is this a current diagnosis for this admission?: Yes Plan: Well controlled with metformin. Stop Accu-Cheks (7) HLD (hyperlipidemia) Qualifiers: Hyperlipidemia type: unspecified Qualified Code(s): E78.5 - Hyperlipidemia , unspecified Is this a current diagnosis for this admission?: Yes (8) History of prostate cancer Is this a current diagnosis for this admission?: Yes (9) HORTENCIA (obstructive sleep apnea) Is this a current diagnosis for this admission?: Yes - Time Time Spent with patient: 25-34 minutes
[2016-11-17] MEDS ORDERED: LEVOFLOXACIN 750 MG TABLET PO SCH (18:00)
[2016-11-18] MEDS: HEPARIN SOD (PORCINE) 5,000 UNIT/ML 1 ML SYRINGE SUBCUT SCH (11:22)
[2016-11-18] MEDS: ATENOLOL 50 MG TABLET PO SCH (11:23)
[2016-11-18] MEDS: VENLAFAXINE HCL 75 MG TABLET PO SCH (11:23)
[2016-11-18] MEDS: ASPIRIN 325 MG TABLET PO SCH (11:23)
--- NOTE | 2016-11-18 17:09 | PDOC DISCHARGE SUMMARY ---
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 Discharge Date: 11/18/16 - Discharge Diagnosis (1) Urinary tract infection Summary: The patient's urine culture was negative however clinically he responded to antibiotics. This is likely coming from his prostate. We will complete a 2 week course of therapy with p.o. Omnicef. (2) Hyperkalemia Summary: Secondary to acute renal failure. Resolved (3) Acute renal failure Summary: Secondary to nephrotoxic medications. Patient's renal function improved with IV fluid hydration and was resolved by the time of discharge.. (4) Chronic ulcer of right great toe Is this a current diagnosis for this admission?: Yes Summary: Continue local wound care (5) Diabetes mellitus type 2 in obese Is this a current diagnosis for this admission?: Yes Summary: Resume home regimen. (6) History of prostate cancer Is this a current diagnosis for this admission?: Yes Summary: He should follow-up with his physicians when he gets back to [place]. (7) HLD (hyperlipidemia) Is this a current diagnosis for this admission?: Yes Summary: Resume home medications (8) Depression Summary: Resume home regimen (9) HORTENCIA (obstructive sleep apnea) Is this a current diagnosis for this admission?: Yes Summary: The patient unfortunately has not picked up his CPAP machine. It is recommended that he do this as soon as he gets back to [place]. (10) Precipitous drop in hematocrit Summary: Secondary to hemodilution - Additional Information Resuscitation Status: Full Code Discharge Diet: Cardiac Discharge Activity: Activity As Tolerated, Balance Activity w/Rest, Slowly Increase Activity Home Medications: Aspirin [Aspirin 325 mg Tablet] 325 mg PO DAILY 11/16/16 Atenolol [Tenormin] 25 mg PO DAILY 11/16/16 Metformin HCl [Glucophage 500 mg Tablet] 500 mg PO QAM 11/16/16 Trazodone HCl [Desyrel 50 mg Tablet] 50 mg PO HSP PRN 11/16/16 Venlafaxine HCl [Effexor 75 mg Tablet] 75 mg PO DAILY 11/16/16 Cefdinir [Omnicef 300 mg Capsule] 1 cap PO BID #28 capsule 11/18/16 History of Present Illness History of Present Illness: MARIA ELENA VILLAR is a 71 year old male who presented to the emergency room with vomiting and increased weakness. Hospital Course Hospital Course: In the emergency room the patient was found to have evidence of acute renal failure and mild hyperkalemia. Still observation in the hospital. He had no further episodes of vomiting after receiving IV fluids. His diet was successfully advanced. Over the course of the hospitalization the patient's acute renal failure and hyperkalemia resolved. The patient was evaluated by general surgery for a toe ulcer. It was felt that there needed to be no further treatment for this except where looser fitting shoes. The patient was found to have evidence of a urinary tract infection. He did respond quite nicely to IV antibiotics and his white blood cell count resolved. His urine culture however remain negative. I believe the source is likely his prostate. He will complete a 2 week course of p.o. Omnicef at discharge. Patient is traveling to this area from [place] and [facility] is [facility] [place] [facility] his [facility] infection as well as his toe ulcer. At this point maximum hospital benefits been reached. Patient will be discharged home today in stable condition. Physical Exam Vital Signs: Temp Pulse Resp BP Pulse Ox 98.0 F 69 18 111/59 L 100 11/18/16 16:00 11/18/16 16:00 11/18/16 16:00 11/18/16 16:00 11/18/16 16:00 Intake & Output 11/17/16 11/18/16 11/19/16 06:59 06:59 06:59 Intake Total 5078 1930 Output Total 2325 2825 Balance 2753 -895 General appearance: PRESENT: no acute distress, obese, well-developed, well- nourished Head exam: PRESENT: atraumatic, normocephalic Eye exam: PRESENT: conjunctiva pink, EOMI, PERRLA. ABSENT: scleral icterus Respiratory exam: PRESENT: clear to auscultation verenice. ABSENT: rales, rhonchi, wheezes Cardiovascular exam: PRESENT: RRR. ABSENT: diastolic murmur, rubs, systolic murmur GI/Abdominal exam: PRESENT: normal bowel sounds, soft. ABSENT: distended, guarding, mass, organolmegaly, rebound, tenderness Rectal exam: PRESENT: deferred Extremities exam: PRESENT: full ROM. ABSENT: calf tenderness, clubbing, pedal edema Neurological exam: PRESENT: alert, awake, oriented to person, oriented to place , oriented to time, oriented to situation, CN II-XII grossly intact. ABSENT: motor sensory deficit Psychiatric exam: PRESENT: appropriate affect, normal mood. ABSENT: homicidal ideation, suicidal ideation Results Laboratory Results: 11/16/16 06:19 11/17/16 09:17 Impressions: Abdomen/Pelvis CT 11/15/16 00:00 IMPRESSION: NO SIGNIFICANT OR ACUTE ABDOMINAL PROCESS. KUB X-Ray 11/16/16 00:00 IMPRESSION: Oral contrast given for CT scan 11/15/2016 is now in the colon. Few nonspecific air-filled small bowel loops in the upper abdomen. Qualifiers PATEINT BEING DISCHARGED WITH ANY OF THE FOLLOWING DIAGNOSIS?: No Plan Time Spent: Greater than 30 Minutes
[2016-11-18 17:35] VITALS: BP 115/69
== END 2016-11-18 20:15 | disposition home or self-care (01) ==
LOC: ER 19:05 → UNDOADMOB 11-16 01:39 → EH 11-16 01:39 → 5 11-16 03:30 → UNDODISOB 11-16 18:20
PROC: 3E0234Z Introduction of Serum, Toxoid and Vaccine into Muscle, Percutaneous Approach (ICD-10-PCS; principal; 2016-11-18)
DX: N39.0 Urinary tract infection, site not specified (principal); E87.5 Hyperkalemia; N17.9 Acute kidney failure, unspecified; T50.905A Adverse effect of unspecified drugs, medicaments and biological substances, initial encounter; E11.42 Type 2 diabetes mellitus with diabetic polyneuropathy; E11.621 Type 2 diabetes mellitus with foot ulcer; L97.519 Non-pressure chronic ulcer of other part of right foot with unspecified severity; L97.529 Non-pressure chronic ulcer of other part of left foot with unspecified severity; E66.9 Obesity, unspecified; E78.5 Hyperlipidemia, unspecified; F32.9 Major depressive disorder, single episode, unspecified; Z85.46 Personal history of malignant neoplasm of prostate; G47.33 Obstructive sleep apnea (adult) (pediatric); R71.0 Precipitous drop in hematocrit; M19.90 Unspecified osteoarthritis, unspecified site; R05 Cough; I25.10 Atherosclerotic heart disease of native coronary artery without angina pectoris; R11.2 Nausea with vomiting, unspecified; R10.84 Generalized abdominal pain; R09.81 Nasal congestion; Z79.82 Long term (current) use of aspirin; Z79.84 Long term (current) use of oral hypoglycemic drugs; Z79.899 Other long term (current) drug therapy; Z92.3 Personal history of irradiation; Z95.5 Presence of coronary angioplasty implant and graft; Z84.1 Family history of disorders of kidney and ureter; Z68.34 Body mass index [BMI] 34.0-34.9, adult; Z87.440 Personal history of urinary (tract) infections; Z23 Encounter for immunization
CPT/HCPCS: 93005; 99285; 96361; 96375; 96365; 36415 ×3; 87040; 87086; 82962 ×3; 83690; 83735; 85025 ×2; 85610; 80048 ×2; 80053; 81001; 82803; 83605; 74000; 74176; 90686; 93010; 94660; J1644 ×3; J3490 ×3; J2405; J7030 ×2; J0696 ×2; 94640